=== PATIENT | male | born 1970 | race Caucasian/White ===

== ENCOUNTER 2021-03-20 19:25 | Emergency (ER) | payer SELFPAY ==
[~2021-03-20] VITALS: Ht 170.2 cm; Wt 70.5 kg
[2021-03-20 19:46] VITALS: BP 142/86
[2021-03-20] MEDS ORDERED: [UNRECOGNIZED DRUG - OTHER] PO (19:46)
== END 2021-03-20 21:30 | disposition left against medical advice (07) ==
LOC: EMS 19:25
DX: M25.551 Pain in right hip (principal); Z53.21 Procedure and treatment not carried out due to patient leaving prior to being seen by health care provider